=== PATIENT | male | born 1980 | race Two or more races ===

== ENCOUNTER 2018-12-22 08:22 | Outpatient (CLI) | payer BC, OTHER ==
[2018-12-22 09:03] LABS: BASOPHILS # (AUTO) 0.1 /CMM (0.0-0.2); EOSINOPHILS % (AUTO) 5.9 % (0.0-6.0); HEMATOCRIT 50 % (39-51); HEMOGLOBIN 16.9 g/dL (13.5-17.5); LYMPHOCYTES # (AUTO) 1.9 /CMM (0.8-4.8); LYMPHOCYTES % (AUTO) 32.9 % (20.0-44.0); MEAN CORPUSCULAR HGB CONC 34 g/dl (31.0-36.0); MEAN CORPUSCULAR VOLUME 89 fL (80-96); MONOCYTES # (AUTO) 0.5 /CMM (0.1-1.30); MONOCYTES % (AUTO) 8.3 % (2.0-12.0); NEUTROPHILS # (AUTO) 2.9 /CMM (1.8-8.9); NEUTROPHILS % (AUTO) 51.9 % (43.0-81.0); PLATELET COUNT (AUTO) 284 /CMM (150-450); RED BLOOD CELL COUNT(AUTO) 5.66 MIL/uL (4.5-6.0); WHITE BLOOD COUNT (AUTO) 5.6 K/uL (4.3-11.0)
[2018-12-22 09:26] LABS: APPEARANCE,URINE SL CLOUDY (CLEAR); BILIRUBIN,URINE NEGATIVE (NEGATIVE); BLOOD, URINE TRACE Ery/uL (NEGATIVE); COLOR,URINE YELLOW (YELLOW); KETONES,URINE TRACE (NEGATIVE); LEUKOCYTE ESTERASE ,URINE NEGATIVE (NEGATIVE); NITRITE, URINE NEGATIVE (NEGATIVE); PROTEIN,URINE NEGATIVE (NEGATIVE); UGLUCOSE NEGATIVE (NEGATIVE); UROBILINOGEN,URINE 0.2 EU/dL (0.2)
[2018-12-22 09:30] LABS: ALBUMIN 4.4 g/dL (3.4-5.0); BILIRUBIN,TOTAL 1.1 mg/dL (0.2-1.0); CALCIUM, SERUM 9.3 mg/dL (8.5-10.1); POTASSIUM 4.2 mmol/L (3.5-5.1); TOTAL PROTEIN, SERUM 8.1 g/dL (6.4-8.2)
[2018-12-22 10:02] LABS: THYROID STIMULATING HORMONE 1.125 uIU/mL (0.358-3.74)
[2018-12-22 10:24] LABS: BACTERIA,URINE None seen /HPF (None Seen); RBC,URINE 0-2 /HPF (0-2); SQUAMOUS EPITHELIAL CELL,UR Rare /HPF (None Seen); WBC,URINE NONE SEEN /HPF (0-3)
== END 2018-12-22 23:59 | disposition home or self-care (01) ==
LOC: LAB 08:22
PROVIDERS: ATTEND Legal Medicine
DX: Z00.00 Encounter for general adult medical examination without abnormal findings (principal)
CPT/HCPCS: 36415; 80053-TC; 80061-TC; 81000-TC; 82306; 82626; 82728-TC; 83540-TC; 84402; 84403; 84439-TC; 84443-TC; 85025-TC

== ENCOUNTER 2019-10-18 14:19 | Outpatient (CLI) | payer BC ==
[2019-10-18 15:03] LABS: BASOPHILS # (AUTO) 0.1 /CMM (0.0-0.2); EOSINOPHILS % (AUTO) 5.7 % (0.0-6.0); HEMATOCRIT 46 % (39-51); HEMOGLOBIN 15.7 g/dL (13.5-17.5); LYMPHOCYTES # (AUTO) 2.6 /CMM (0.8-4.8); LYMPHOCYTES % (AUTO) 40.3 % (20.0-44.0); MEAN CORPUSCULAR HGB CONC 34 g/dl (31.0-36.0); MEAN CORPUSCULAR VOLUME 88 fL (80-96); MONOCYTES # (AUTO) 0.5 /CMM (0.1-1.30); MONOCYTES % (AUTO) 8.1 % (2.0-12.0); NEUTROPHILS # (AUTO) 2.9 /CMM (1.8-8.9); NEUTROPHILS % (AUTO) 44.9 % (43.0-81.0); PLATELET COUNT (AUTO) 282 /CMM (150-450); RED BLOOD CELL COUNT(AUTO) 5.26 MIL/uL (4.5-6.0); WHITE BLOOD COUNT (AUTO) 6.5 K/uL (4.3-11.0)
[2019-10-18 15:04] LABS: ALBUMIN 4.2 g/dL (3.4-5.0); BILIRUBIN,TOTAL 0.5 mg/dL (0.2-1.0); CALCIUM, SERUM 8.9 mg/dL (8.5-10.1); POTASSIUM 4.2 mmol/L (3.5-5.1); TOTAL PROTEIN, SERUM 7.8 g/dL (6.4-8.2)
== END 2019-10-18 23:59 | disposition home or self-care (01) ==
LOC: LAB 14:19
PROVIDERS: ATTEND Legal Medicine
DX: R10.9 Unspecified abdominal pain (principal)
CPT/HCPCS: 36415; 80053-TC; 82150-TC; 83690-TC; 85025-TC

== ENCOUNTER 2020-04-16 01:02 | Emergency (ER) | payer OTHER ==
[~2020-04-16] VITALS: Ht 175.3 cm; Wt 63.5 kg
[2020-04-16 01:03] VITALS: BP 122/62
--- NOTE | 2020-04-17 02:08 | NUR ---
LAB CALLED REGARDING COVID NEGATIVE RESULT
== END 2020-04-16 01:50 | disposition home or self-care (01) ==
LOC: ER 01:05
DX: Z03.818 Encounter for observation for suspected exposure to other biological agents ruled out (principal)
CPT/HCPCS: 99283; U0003

== ENCOUNTER 2020-07-31 19:50 | Emergency (ER) | payer OTHER ==
[~2020-07-31] VITALS: Ht 175.3 cm; Wt 70.3 kg
[2020-07-31 19:50] VITALS: BP 124/92
== END 2020-07-31 22:20 | disposition home or self-care (01) ==
LOC: ER 19:55
DX: Z20.828 Contact with and (suspected) exposure to other viral communicable diseases (principal)
CPT/HCPCS: 99283; C9803; U0003

== ENCOUNTER 2020-10-25 04:00 | Emergency (ER) | payer OTHER ==
[~2020-10-25] VITALS: Ht 176.5 cm; Wt 63.5 kg
[2020-10-25 04:04] VITALS: BP 132/62
== END 2020-10-25 04:57 | disposition home or self-care (01) ==
LOC: ER 04:03
DX: Z20.828 Contact with and (suspected) exposure to other viral communicable diseases (principal)
CPT/HCPCS: 99283; C9803; U0003

== ENCOUNTER 2020-10-28 00:48 | Emergency (ER) | payer OTHER ==
[~2020-10-28] VITALS: Ht 174 cm; Wt 63.5 kg
[2020-10-28 00:49] VITALS: BP 132/65
== END 2020-10-28 01:15 | disposition home or self-care (01) ==
LOC: ER 00:50
DX: Z20.828 Contact with and (suspected) exposure to other viral communicable diseases (principal)
CPT/HCPCS: 99283; C9803; U0003

== ENCOUNTER 2020-11-04 02:24 | Emergency (ER) | payer OTHER ==
[~2020-11-04] VITALS: Ht 174 cm; Wt 63.5 kg
[2020-11-04 02:30] VITALS: BP 139/85
== END 2020-11-04 02:45 | disposition home or self-care (01) ==
LOC: ER 02:25
DX: Z20.828 Contact with and (suspected) exposure to other viral communicable diseases (principal); R03.0 Elevated blood-pressure reading, without diagnosis of hypertension
CPT/HCPCS: 99283; C9803; U0003

== ENCOUNTER 2020-11-09 02:38 | Emergency (ER) | payer OTHER ==
[~2020-11-09] VITALS: Ht 174 cm; Wt 63.5 kg
[2020-11-09 02:40] VITALS: BP 141/79
== END 2020-11-09 03:17 | disposition home or self-care (01) ==
LOC: ER 02:44
DX: Z20.828 Contact with and (suspected) exposure to other viral communicable diseases (principal)
CPT/HCPCS: 99283; C9803; U0003

== ENCOUNTER 2020-11-13 02:46 | Emergency (ER) | payer OTHER ==
[~2020-11-13] VITALS: Ht 175.3 cm; Wt 63.5 kg
[2020-11-13 02:51] VITALS: BP 117/65
== END 2020-11-13 03:06 | disposition home or self-care (01) ==
LOC: ER 02:46
DX: Z20.828 Contact with and (suspected) exposure to other viral communicable diseases (principal)
CPT/HCPCS: 99283; C9803; U0003

== ENCOUNTER 2020-11-19 02:19 | Emergency (ER) | payer OTHER ==
[~2020-11-19] VITALS: Ht 175.3 cm; Wt 63.5 kg
[2020-11-19 02:21] VITALS: BP 129/64
--- NOTE | 2020-11-19 02:39 | NUR ---
SWAB COLLECTED AND SENT TO THE LAB.
== END 2020-11-19 02:41 | disposition home or self-care (01) ==
LOC: ER 02:20
DX: Z20.822 Contact with and (suspected) exposure to COVID-19 (principal)
CPT/HCPCS: 99283; C9803; U0003

== ENCOUNTER 2021-03-16 00:46 | Emergency (ER) | payer OTHER ==
[~2021-03-16] VITALS: Ht 175.3 cm; Wt 63.5 kg
[2021-03-16 00:46] VITALS: BP 129/75
== END 2021-03-16 02:23 | disposition home or self-care (01) ==
LOC: ER 00:50
DX: Z20.822 Contact with and (suspected) exposure to COVID-19 (principal)
CPT/HCPCS: 99283; C9803; U0003

== ENCOUNTER 2021-10-05 11:31 | Outpatient (CLI) | payer BC ==
[2021-10-05 12:42] LABS: BASOPHILS # (AUTO) 0.1 K/uL (0.0-0.2); BASOPHILS % (AUTO) 1.5 % (0.0-2.0); BILIRUBIN,URINE NEGATIVE (NEGATIVE); COLOR,URINE YELLOW (YELLOW); EOSINOPHILS % (AUTO) 3.5 % (0.0-6.0); HEMATOCRIT 46 % (39-51); HEMOGLOBIN 15.4 g/dL (13.5-17.5); LEUKOCYTE ESTERASE ,URINE NEGATIVE (NEGATIVE); LYMPHOCYTES # (AUTO) 1.1 K/uL (0.8-4.8); LYMPHOCYTES % (AUTO) 33.8 % (20.0-44.0); MEAN CORPUSCULAR HGB CONC 34 g/dl (31.0-36.0); MEAN CORPUSCULAR VOLUME 90 fL (80-96); MONOCYTES # (AUTO) 0.3 K/uL (0.1-1.30); MONOCYTES % (AUTO) 9.6 % (2.0-12.0); NEUTROPHILS # (AUTO) 1.8 K/uL (1.8-8.9); NEUTROPHILS % (AUTO) 51.6 % (43.0-81.0); NITRITE, URINE NEGATIVE (NEGATIVE); PLATELET COUNT (AUTO) 271 K/uL (150-450); PROTEIN,URINE NEGATIVE (NEGATIVE); RED BLOOD CELL COUNT(AUTO) 5.09 MIL/uL (4.5-6.0); UGLUCOSE NEGATIVE (NEGATIVE); UROBILINOGEN,URINE 0.2 EU/dL (0.2); WHITE BLOOD COUNT (AUTO) 3.4 K/uL (4.3-11.0)
[2021-10-05 13:17] LABS: THYROID STIMULATING HORMONE 2.134 uIU/mL (0.358-3.74); URIC ACID 4.6 mg/dL (2.6-7.2)
[2021-10-05 13:19] LABS: ALBUMIN 4.1 g/dL (3.4-5.0); BILIRUBIN,TOTAL 0.3 mg/dL (0.2-1.0); CALCIUM, SERUM 8.6 mg/dL (8.5-10.1); CREATININE 1.1 mg/dL (0.6-1.3); TOTAL PROTEIN, SERUM 7.6 g/dL (6.4-8.2)
== END 2021-10-05 23:59 | disposition home or self-care (01) ==
LOC: LAB 11:31
PROVIDERS: ATTEND Legal Medicine
DX: E11.9 Type 2 diabetes mellitus without complications (principal); E55.9 Vitamin D deficiency, unspecified; E78.5 Hyperlipidemia, unspecified; N40.0 Benign prostatic hyperplasia without lower urinary tract symptoms; E03.9 Hypothyroidism, unspecified; D64.9 Anemia, unspecified; Z00.00 Encounter for general adult medical examination without abnormal findings
CPT/HCPCS: 36415; 80053-TC; 80061-TC; 82306; 82607-TC; 82626; 82728-TC; 83540-TC; 84402; 84403; 84439-TC; 84443-TC; 84550-TC; 85025-TC

== ENCOUNTER 2022-06-30 15:07 | Outpatient (CLI) | payer BC ==
[2022-06-30 16:50] LABS: BASOPHILS # (AUTO) 0.1 K/uL (0.0-0.2); BASOPHILS % (AUTO) 1.3 % (0.0-2.0); EOSINOPHILS % (AUTO) 4.9 % (0.0-6.0); HEMATOCRIT 47 % (39-51); HEMOGLOBIN 15.6 g/dL (13.5-17.5); LYMPHOCYTES # (AUTO) 1.5 K/uL (0.8-4.8); LYMPHOCYTES % (AUTO) 32.3 % (20.0-44.0); MEAN CORPUSCULAR HGB CONC 33 g/dl (31.0-36.0); MEAN CORPUSCULAR VOLUME 89 fL (80-96); MONOCYTES # (AUTO) 0.4 K/uL (0.1-1.30); MONOCYTES % (AUTO) 9.1 % (2.0-12.0); NEUTROPHILS # (AUTO) 2.5 K/uL (1.8-8.9); NEUTROPHILS % (AUTO) 52.4 % (43.0-81.0); PLATELET COUNT (AUTO) 274 K/uL (150-450); RED BLOOD CELL COUNT(AUTO) 5.29 MIL/uL (4.5-6.0); WHITE BLOOD COUNT (AUTO) 4.8 K/uL (4.3-11.0)
[2022-06-30 16:54] LABS: ALBUMIN 4.2 g/dL (3.4-5.0); BILIRUBIN,TOTAL 0.7 mg/dL (0.2-1.0); CALCIUM, SERUM 8.6 mg/dL (8.5-10.1); CREATININE 1.1 mg/dL (0.6-1.3); POTASSIUM 3.7 mmol/L (3.5-5.1); TOTAL PROTEIN, SERUM 8.1 g/dL (6.4-8.2)
[2022-06-30 17:06] LABS: PROSTATE SPECIFIC ANTIGEN SCR 0.54 ng/mL (0.00-4.00)
[2022-06-30 17:14] LABS: COLOR,URINE YELLOW (YELLOW)
[2022-06-30 17:15] LABS: BILIRUBIN,URINE NEGATIVE (NEGATIVE); LEUKOCYTE ESTERASE ,URINE NEGATIVE (NEGATIVE); NITRITE, URINE NEGATIVE (NEGATIVE); PROTEIN,URINE NEGATIVE (NEGATIVE); UGLUCOSE NEGATIVE (NEGATIVE); UROBILINOGEN,URINE 0.2 EU/dL (0.2)
[2022-07-02 07:07] LABS: FOLLICLE STIMULATION HORMONE 37.8 mIU/mL (1.5-12.4); LUTEINIZING HORMONE 10.2 mIU/mL (1.7-8.6)
== END 2022-06-30 23:59 | disposition home or self-care (01) ==
LOC: LAB 15:07
PROVIDERS: ATTEND Urology
DX: N50.819 Testicular pain, unspecified (principal); N50.89 Other specified disorders of the male genital organs
CPT/HCPCS: 36415; 76870-TC; 80053-TC; 80061-TC; 83001; 83002; 84153-TC; 84154-TC; 84402; 84403; 85025-TC; 87086-TC

== ENCOUNTER 2024-01-16 10:56 | Outpatient (CLI) | payer BC | END 2024-01-16 23:59 | disposition home or self-care (01) | LOC: CT 10:56 | PROVIDERS: ATTEND Legal Medicine | DX: J32.0 Chronic maxillary sinusitis (principal) | CPT/HCPCS: 70486-TC ==